=== PATIENT | female | born 1980 ===

== ENCOUNTER 2016-10-21 07:26 | Inpatient (IN) | payer BC ==
[~2016-10-21] VITALS: Ht 160 cm; Wt 78.2 kg
[2016-10-21] MEDS ORDERED: LACTATED RINGER'S 1000ML 500 ML IV PRN ×2 (08:41→20:02)
[2016-10-21] MEDS ORDERED: LACTATED RINGER'S 1000ML 1,000 ML IV PRN (08:41)
[2016-10-21] MEDS ORDERED: OXYTOCIN 30 UNITS/500ML NSS IV PRN (08:45)
[2016-10-21] MEDS ORDERED: PATIENT'S ALLERGY INFO NEEDS ENTERED SCH (09:00)
[2016-10-21] MEDS ORDERED: CALCIUM CARBONATE 500 MG CHEWABLE PO PRN (09:00)
--- NOTE | 2016-10-21 09:07 | HISTORY & PHYSICAL EXAMINATION ---
DATE OF ADMISSION: 10/21/2016 CHIEF COMPLAINT: Scheduled induction of labor for post-dates. HISTORY OF PRESENT ILLNESS: The patient is a 36-year-old G1, P0 at 40 weeks and 3 days of gestation who is presenting for scheduled induction of labor for postdates. She has no complaints, no contractions, leakage of fluid, or vaginal bleeding. She reports good movements. Her has been uncomplicated. She denies headaches, change in her vision, nausea, vomiting, epigastric pain, right upper quadrant pain or leg pain. She was measuring large on 10/17/2016 when she had ultrasound, baby was measuring 3924 grams, JUANCHO was 21. Discussed the ultrasound and the risks of shoulder dystocia, ACOG recommendations as for over 5000 grams. She would like to try vaginal and induction of labor today. PAST MEDICAL HISTORY: Unremarkable. She has a history of anxiety. She was on Lexapro years ago. She has not used anything for the last 4 years. She has been doing well. PAST SURGICAL HISTORY: [place] teeth extraction. MEDICATIONS: vitamins, iron sulfate, Tums. ALLERGIES: CODEINE CAUSED NAUSEA. GYNECOLOGIC HISTORY: The patient denies any history of STDs including Chlamydia, gonorrhea, herpes. OBSTETRICAL HISTORY: This is her first . LABS: Her blood type is A positive, antibody screen negative. H\T\H is 13/38, platelets 206. Rubella titer equivocal, RPR nonreactive, hepatitis B surface antigen negative, HIV negative, GC chlamydia cultures are negative and quad screening testing was negative. GBS culture was negative on 09/21/2016. One hour Glucola was 98 mg per deciliter. PHYSICAL EXAMINATION: GENERAL: The patient is alert, oriented x3. Not in acute distress. VITAL SIGNS: Stable. Afebrile. CARDIOVASCULAR SYSTEM: S1, S2, RRR. LUNGS: Clear to auscultation bilaterally. ABDOMEN: Soft, gravid. Ozzy 8-9 pounds. EXTREMITIES: Nontender, no edema. VAGINAL EXAMINATION: Cervix is 2 cm dilated, 60% effaced, -3 with tight bulging membranes. heart rate 140s, category 1. Tocometer contractions every 4-5 minutes. ASSESSMENT AND PLAN: The patient is a 36-year-old G1, P0 at 40 weeks and 3 days of gestation presenting for induction of labor for postdates. Vital signs stable, afebrile. Irregular and mild contractions. GBS negative. heart rate reassuring. No medical problems. Plan is admit her, start IV fluids, start IV Pitocin to augment her contractions and AROM when possible. Discussed risks of Pitocin. She understands and agrees with plan. MISHEL
[2016-10-21 09:36] LABS: HEMATOCRIT 38.2 % (37-47); MEAN CORPUSCULAR HEMOGLOBIN 28.8 pg (25-34); MEAN CORPUSCULAR HGB CONC 32.7 g/dl (32-36); MEAN PLATELET VOLUME 10.8 fL (7.4-10.4); PLATELET COUNT 160 K/uL (130-400); RED BLOOD COUNT 4.34 M/uL (4.2-5.4); WHITE BLOOD COUNT 11.16 K/uL (4.8-10.8)
[2016-10-21] MEDS: LACTATED RINGER'S 1000ML 1,000 ML IV SCH ×2 (09:39→16:16)
[2016-10-21 16:27] VITALS: Ht 160 cm; Wt 78.2 kg
[2016-10-21] MEDS ORDERED: IRON1CAP2 (18:05)
[2016-10-21] MEDS ORDERED: PRENCAP38 PO (18:05)
[2016-10-21] MEDS ORDERED: BUPIVACAINE 0.25% 30 ML VIAL ONE (18:53)
[2016-10-21] MEDS ORDERED: FENTANYL 2MCG/ML ROPIV 1.25MG/ML 100ML BAG EPI ONE (18:54)
[2016-10-21] MEDS ORDERED: EpHEDrine SULFATE INJ 50 MG/ML AMP ONE (18:54)
[2016-10-21] MEDS ORDERED: FENTANYL CITRATE INJ 50 MCG/1 ML 2 ML VIAL ONE (18:55)
[2016-10-21] MEDS ORDERED: NALOXONE HCL INJ 1 MG in SODIUM CHLORIDE 0.9% 1000ML 1,000 ML IV PRN (20:02)
[2016-10-21] MEDS ORDERED: EpHEDrine SULFATE INJ 50 MG/ML AMP IV PRN (20:15)
[2016-10-21] MEDS ORDERED: DiphenhydrAMINE HCL 50 MG/ML VIAL IV PRN (20:15)
[2016-10-21] MEDS ORDERED: NALBUPHINE HCL INJ 10 MG/ML AMP IV PRN (20:15)
[2016-10-21] MEDS ORDERED: NALOXONE HCL INJ 0.4 MG/1 ML VIAL/CARP IV PRN (20:15)
[2016-10-22] MEDS: FENTANYL 2MCG/ML ROPIV 1.25MG/ML 100ML BAG EPI PRN ×2 (02:51→11:57)
[2016-10-22] MEDS: LACTATED RINGER'S 1000ML 1,000 ML IV SCH ×3 (05:31→13:33)
[2016-10-22] MEDS ORDERED: BUPIVACAINE 0.25% 30 ML VIAL ONE (08:22)
[2016-10-22] MEDS ORDERED: LACTATED RINGER'S 1000ML 1,000 ML IV SCH (14:52)
[2016-10-22] MEDS ORDERED: ACETAMINOPHEN 325 MG TAB PO PRN (15:00)
[2016-10-22] MEDS ORDERED: OXYCODONE/ACETAMINOPHEN 5-325 TAB PO PRN (15:00)
[2016-10-22] MEDS ORDERED: LANOLIN OINT EXT PRN ×2 (15:00)
[2016-10-22] MEDS ORDERED: OXYTOCIN 30 UNITS/500ML NSS IV PRN (15:00)
[2016-10-22] MEDS ORDERED: BENZOCAINE 20% AER SPR 82.5 GM CAN EXT PRN (15:00)
[2016-10-22] MEDS ORDERED: IBUPROFEN 600 MG TAB PO PRN (15:00)
[2016-10-22] MEDS ORDERED: METHYLERGONOVINE MALEATE 0.2 MG/ML AMP IM ONE (15:00)
[2016-10-22] MEDS ORDERED: SUPERCREAM 0.870 % 15GM JAR EXT PRN (15:00)
[2016-10-22] MEDS ORDERED: MEASLES, MUMPS & RUBELLA VIRUS VIAL SQ. ONE (15:00)
--- NOTE | 2016-10-22 15:48 | OPERATIVE REPORT ---
DATE OF OPERATION: 10/22/2016 TIME OF DELIVERY OF BABY: 13:53 p.m. TIME OF DELIVERY OF PLACENTA: 14:31 p.m. DETAILS OF DELIVERY: The patient was found to be fully dilated and desired to push. She pushed for about 3 hours and the perineal muscles, hymenal ring and the skin were tight around the head. After verbal consent was obtained, a right mediolateral episiotomy was opened and baby's head was delivered without difficulty. There was a loose nuchal cord x1. The shoulders were delivered with minimal traction. The nuchal cord was reduced while delivering the body. Baby was handed over to the mother where mouth and nose were suctioned. Cord was clamped x2 and cut, 3-vessel cord. Then baby was taken by the nurses. The vagina and perineum were checked for lacerations. There was episiotomy only. Rectal exam was done and confirmed to be a second degree. Gloves were changed. The episiotomy was repaired while bringing the vaginal mucosa together. The perineal body muscles and bulbocavernosus muscles together and the skin in a subcuticular fashion. There was oozing around the episiotomy repair in the vagina as well as left to the episiotomy. Those were repaired with 2-0 Vicryl with single interrupted stitches and then we waited for placenta for 30 minutes. Placenta was found to be in the lower uterine segment / upper vagina. It was delivered by patient pushing and manual uterine massages. It was complete and intact. Then the uterus was explored and found to be empty. Lower segment was cleared of all clots and debris. Fundus was firm. EBL was 300. Vagina was checked again, there was again minimal oozing from the episiotomy repair as well as lower left vaginal wall. Those were repaired with 2-0 Vicryl with single [id number] stitches. There was still minimal oozing around the repair from the friable vaginal mucosa. Bernard powder was applied over this oozing on the mucosa and excellent hemostasis was achieved. Rectal exam was repeated and found to have good sphincter tone and no sutures were felt. Gloves were changed. Mother and baby tolerated the procedure well. Baby was a viable female infant. Apgars were 7/9. Weight was 3905 gr. No complications happened. I was present during whole procedure. At the end of the procedure, sponge, needle and instrument counts were correct x2. I attest to the content of the Intraoperative Record and any orders documented therein. Any exceptions are noted below. MISHEL
[2016-10-22] MEDS ORDERED: ONDANSETRON INJ 2 MG/ML 2 ML VIAL IV STA (16:29)
--- NOTE | 2016-10-22 16:29 | Anesthesia Procedure Note ---
Anesthesia Epidural Removal Nt Date & Time Oct 22, 2016 at 16:28 Vital Signs Pain Intensity: 0.0 Notes Mental Status: alert / awake / arousable, participated in evaluation Nausea / Vomiting: adequately controlled Pain: adequately controlled Airway Patency, RR, SpO2: stable & adequate BP & HR: stable & adequate Hydration State: stable & adequate Neuraxial Anesthesia: was administered Anesthetic Complications: no major complications apparent, pt satisfied with anesthetic care Epidural: removed without complications, with tip intact
[2016-10-22] MEDS ORDERED: NURSING VERBAL MED ORDER ONE (16:30)
[2016-10-22 18:15] VITALS: BP 116/76; PULSE 82; TEMP 36.7
[2016-10-22] MEDS: DOCUSATE SODIUM 100 MG CAP PO SCH (20:14)
[2016-10-22 23:25] VITALS: BP 94/60; PULSE 89; TEMP 37; O2SAT 98
[2016-10-23 03:45] VITALS: BP 96/62; PULSE 75; TEMP 36.4
[2016-10-23] MEDS: IBUPROFEN 200 MG/10 ML UDC PO PRN ×5 (03:56→20:26)
[2016-10-23 07:21] LABS: HEMATOCRIT 31.1 % (37-47)
--- NOTE | 2016-10-23 07:50 | OB/GYN Progress Note ---
CHIEF CLERK Progress Note Date of Service: Oct 23, 2016. Patient is seen and examined. She feels well, no complaints. Ambulating without dizziness Voiding without difficulty Tolerating regular diet with out N&V Bleeding is minimal No fever/ chills/ CP/ SOB/ N&V/ Leg pain Breast feeding without problems Date Time Temp Pulse Resp B/P Pulse Ox O2 Delivery O2 Flow Rate FiO2 10/23/16 03:45 36.4 75 16 96/62 10/22/16 23:25 37.0 89 16 94/60 98 Room Air 10/22/16 23:25 Room Air 10/22/16 18:15 Room Air 10/22/16 18:15 36.7 82 20 116/76 Room Air Test 10/21/16 09:10 10/23/16 06:51 White Blood Count 11.16 H Red Blood Count 4.34 Hemoglobin 12.5 10.5 L Hematocrit 38.2 31.1 L Mean Corpuscular Volume 88.0 Mean Corpuscular Hemoglobin 28.8 Mean Corpuscular Hemoglobin Concent 32.7 RDW Standard Deviation 46.1 RDW Coefficient of Variation 14.2 Platelet Count 160 Mean Platelet Volume 10.8 H PE: General: Alert, orientedx3, NAD Abd: soft, NT, fundus firm, below Umbilicus Perineum intact, Lochia rubra minimal Ext; NT, no edema AP: 36 yo s/p , ppd# 1 VSS Afebrile doing well Continue routine care All questions were answered D/C home tomorrow
[2016-10-23] MEDS ORDERED: MAGNESIUM HYDROXIDE SUSP 30 ML UDC PO ONE (08:00)
[2016-10-23] MEDS: PRENATAL VITAMIN TAB PO SCH (08:00)
[2016-10-23] MEDS: FERROUS SULFATE 325 MG TAB PO SCH (08:00)
[2016-10-23] MEDS: DOCUSATE SODIUM 100 MG CAP PO SCH ×2 (08:18→20:25)
[2016-10-23 08:30] VITALS: BP 104/69; PULSE 84; TEMP 36.4; O2SAT 98
[2016-10-23 11:25] VITALS: BP 102/63; PULSE 74; TEMP 36.5; O2SAT 98
[2016-10-23 15:30] VITALS: BP 111/62; PULSE 80; TEMP 36.4
[2016-10-23] MEDS ORDERED: BISACODYL 5 MG TABEC PO SCH (20:00)
[2016-10-24 00:01] VITALS: BP 103/64; PULSE 83; TEMP 36.7
[2016-10-24] MEDS: IBUPROFEN 200 MG/10 ML UDC PO PRN ×2 (00:33→08:36)
[2016-10-24] MEDS ORDERED: BISACODYL 10 MG SUPP PR PRN (07:00)
[2016-10-24 07:28] LABS: HEMATOCRIT 25.5 % (37-47); MEAN CELL VOLUME 89.8 fL (80-100); MEAN CORPUSCULAR HEMOGLOBIN 29.9 pg (25-34); MEAN CORPUSCULAR HGB CONC 33.3 g/dl (32-36); MEAN PLATELET VOLUME 10.5 fL (7.4-10.4); PLATELET COUNT 138 K/uL (130-400); RED BLOOD COUNT 2.84 M/uL (4.2-5.4); WHITE BLOOD COUNT 11.02 K/uL (4.8-10.8)
[2016-10-24 08:00] VITALS: BP 101/66; PULSE 74; TEMP 36.6
[2016-10-24] MEDS: DOCUSATE SODIUM 100 MG CAP PO SCH (08:38)
[2016-10-24] MEDS: PRENATAL VITAMIN TAB PO SCH (08:40)
[2016-10-24] MEDS: FERROUS SULFATE 325 MG TAB PO SCH (08:41)
--- NOTE | 2016-10-24 08:43 | OB/GYN Progress Note ---
DENTAL EQUIPMENT TECHNICIAN Progress Note Date of Service Oct 24, 2016. Subjective conversation w/ patient, physical exam Ambulation: ambulating normally Voiding: no voiding problems Passing Gas: Yes Diet Tolerance: Regular Diet Lochia: Moderate Feeding Type: Breast Feeding Review of Systems Constitutional: No chills, No fatigue, No fever, No problem reported, No sweats , No weakness, No weight loss Respiratory: No cough, No dyspnea at rest, No dyspnea on exertion, No hemoptysis, No problem reported, No shortness of breath, No sputum, No wheezing Cardiac: No PND, No chest pain, No claudication, No edema, No orthopnea, No palpitations, No problem reported Breast: No breast lump, No breast pain, No change in shape, No nipple discharge , No problem reported, No see HPI Abdomen: No GI bleeding, No constipation, No diarrhea, No nausea, No pain, No problem reported, No vomiting Female : No abnormal vaginal bleeding, No dysuria, No hematuria, No incontinence, No problem reported, No see HPI, No urinary frequency, No vaginal discharge Objective Vital Signs Date Time Temp Pulse Resp B/P Pulse Ox O2 Delivery O2 Flow Rate FiO2 10/24/16 08:00 36.6 74 18 101/66 Room Air 10/24/16 00:01 Room Air 10/24/16 00:01 36.7 83 18 103/64 Room Air 10/23/16 15:30 Room Air 10/23/16 15:30 36.4 80 20 111/62 Room Air 10/23/16 11:25 36.5 74 16 102/63 98 Room Air Physical Exam General Appearance: WELL-APPEARING, WD/WN, NO APPARENT DISTRESS Respiratory/Chest: chest non-tender, lungs clear, normal breath sounds, no respiratory distress, no accessory muscle use Cardiovascular: regular rate, rhythm, no edema, no gallop, no JVD, no murmur Abdomen: normal bowel sounds, non tender, soft, no organomegaly, no pulsatile mass Fundus: Firm Incision Description: Clean, Dry & Intact Extremities: normal range of motion, non-tender, normal inspection, no pedal edema, no calf tenderness Laboratory Results Last 24 Hours Test 10/24/16 06:45 White Blood Count 11.02 K/uL Red Blood Count 2.84 M/uL Hemoglobin 8.5 g/dL Hematocrit 25.5 % Mean Corpuscular Volume 89.8 fL Mean Corpuscular Hemoglobin 29.9 pg Mean Corpuscular Hemoglobin Concent 33.3 g/dl RDW Standard Deviation 49.2 fL RDW Coefficient of Variation 14.8 % Platelet Count 138 K/uL Mean Platelet Volume 10.5 fL Assessment and Plan Day Number: 2 Continue Routine Care: PPD #2 pt doing well d/c home with instructions
[2016-10-24] MEDS ORDERED: IBUP100S PO (08:45)
--- NOTE | 2016-10-24 08:46 | Discharge Instructions ---
Discharge Instructions Date of Service Oct 24, 2016. Admission Reason for Admission: Induction Discharge Discharge Diagnosis / Problem: Discharge Goals Goal(s): Routine recovery after delivery Activity Recommendations Activity Limitations: as noted below . Current Hospital Diet Patient's current hospital diet: Regular OB Diet Discharge Diet Recommended Diet: Regular Diet Pending Studies Studies pending at discharge: no Medical Emergencies . Who to Call and When: Medical Emergencies: If at any time you feel your situation is an emergency, please call 911 immediately. . Non-Emergent Contact Non-Emergency issues call your: Primary Care Provider . . "Provider Documentation" section prepared by Dominick Haynes. . VTE Core Measure Inpt VTE Proph given/why not?: Treatment not indicated
--- NOTE | 2016-10-24 09:07 | Discharge Instructions ---
Discharge Instructions Date of Service Oct 24, 2016. Admission Reason for Admission: Induction Discharge Discharge Diagnosis / Problem: Discharge Goals Goal(s): Continuing OB care Activity Recommendations Activity Limitations: as noted below ACTIVITY RECOMMENDATIONS: * Gradual return to full activity over the next 2-3 weeks. * No lifting - nothing heavier than baby over the next 2-3 weeks. * Do not engage in vigorous exercise, sexual activity or sports until cleared by your physician. * Do not drive or operate any motorized equipment until cleared by your physician. * You may shower/bathe daily. BREAST CARE: If you are not breast feeding: * Wear a supportive bra 24 hours a day for one to two weeks. * Avoid stimulating your breasts and nipples as much as possible during the first few weeks after delivery. * When taking a shower, have the warm water hit your back, not breasts. * When your breasts feel full, apply ice packs. Usually three to four times a day helps ease the discomfort. * Take a mild pain medication (Tylenol/Motrin) when you are uncomfortable. If breast feeding: * Use breast milk to lubricate nipples. Lansinoh cream may be used for sore nipples. You do not need to remove cream prior to breast feeding. If using a different brand of cream, check the label for directions regarding removal of cream prior to nursing. * Wear a supportive bra. * If having problems with breasts or breast feeding, call a real estate consultant or your health care provider. EPISIOTOMY CARE: After delivery, if you have an episiotomy (stitches), the following steps will ease discomfort and aid healing. * For the first 24 hours after delivery, place ice packs next to your episiotomy to help reduce swelling. * After the first 24 hour-period, sitz baths, either portable or in the tub, are suggested. A shower with a shower arm sprayed over the episiotomy may be comforting. * [place] care should be done after each voiding and bowel movement. Squirt warm water from a plastic bottle over the perineum (region of the body between the anus and urinary opening) and pat dry. * Use Dermoplast to ease discomfort. Shake container. [place] directly over the episiotomy. * Place a Tucks on a clean sanitary pad next to your episiotomy. OVER THE COUNTER MEDICATION: * For discomfort or pain, you may use Acetaminophen (Tylenol), Ibuprofen (Advil ), or Naproxen (Aleve) following the package directions. * For constipation you may use Colace following the package directions. SPECIAL CARE INSTRUCTIONS: When you are discharged from the hospital, it is important for you to follow the instructions listed below: * During the first week at home, you should be able to care for yourself and your baby. In addition, the usual light household activities are encouraged. * Limit your activities to the way you feel. Do not try to clean the house or move furniture. Be sensible. * If you actively engage in sports and have done so up until the time of your delivery, you may resume these activities as soon as you feel able. This may take up to one month or even longer. Use good judgment. * Continue to take your vitamins for at least six weeks after the of your baby. * Your diet need not be limited unless you were on a special diet before your delivery. Breast-feeding mothers need around 2500 calories per day and at least 64-80 ounces of fluid per day (8 to 10 glasses). * You should eat foods from the four major food groups. Crash diets or fad diets are to be avoided. Eating lean meats, fresh fruits and vegetables, low-fat dairy products, high fiber foods and a regular exercise program, will help you get back to your pre- weight without putting your health at risk. * Constipation is sometimes a problem after delivery. Take a mild laxative as needed. If breast feeding, Milk of Magnesia is acceptable to use. You may use a suppository or Fleets enema if no episiotomy. * A daily shower or tub bath is suggested. Be sure to thoroughly and gently dry the perineum. * A bloody vaginal discharge will usually continue until around four weeks post . A small amount of bleeding may continue for as long as six weeks. Vaginal discharge changes from the bright red bleeding after delivery to pink then brownish and finally yellowish-pink before becoming white and disappearing. * Bleeding may increase with activity. Your first period may come in 4-8 weeks. If you are breast feeding, your period may be delayed even longer. * [place] (sex) can begin whenever both you and your partner feel comfortable and do not have any form of genital infection. It is recommended that you wait until after your return appointment and discuss with your physician. If you have questions, please talk to your health care practitioner. A condom should be used to prevent infection and . * Foreplay, gentle intercourse and lubrication is very important the first several times to prevent pain. A water-based lubricant such as K-Y jelly or Astroglide may be used. * Tampons may be used six weeks after delivery. * Douching should be avoided for 6 weeks after delivery. * If you have RH negative blood and your baby is RH positive, you will receive RHOGAM by injection prior to discharge. The nurse will give you a card to keep with you that has the date and place that you received RHOGAM after delivery. * During your care, you had a Rubella screen done to check for the presence of rubella antibodies in your blood. If your test was negative, you will receive a Rubella vaccine prior to discharge. This vaccine may cause a fever, soreness at the injection site and flu-like symptoms. If these symptoms persist, notify your health care practitioner. is not advised for three months after a Rubella vaccine. There is a higher chance of having a baby with defects if conceived within three months of getting the vaccine. * If you were discharged 24 hours from delivery or before 48 hours: Visiting nurses will come to your home 48 hours after discharge to assess you and your baby. The visiting nurse will meet with you while you are in the hospital to arrange a time and get directions to your home. * Verbalizes understanding of car seat law as reviewed with patient nursing. * Car Seat hand-out given and reviewed with patient by nursing. * Shaken baby information reviewed with patient by nursing. Call you doctor if: * Heavy bleeding (saturating several pads an hour) or passing clots the size of your fist. * A fever >101 degrees F (38.3 degrees C) on two occasions four hours apart and/or chills. * Unusual pain in the pelvic or vaginal areas. * "Baby Blues" lasting longer than two weeks. If you have any questions or concerns, call your health care practitioner at . FOLLOW-UP VISIT: * Please call the office at to schedule a 6 week examination. It is important you keep this appointment. * It is important for you to make arrangements for either yearly or twice yearly check-ups thereafter. . Current Hospital Diet Patient's current hospital diet: Regular OB Diet Discharge Diet Recommended Diet: Regular Diet Pending Studies Studies pending at discharge: no Medical Emergencies . Who to Call and When: Medical Emergencies: If at any time you feel your situation is an emergency, please call 911 immediately. . Non-Emergent Contact Non-Emergency issues call your: Specialist . . "Provider Documentation" section prepared by Dominick Haynes. . VTE Core Measure Inpt VTE Proph given/why not?: Treatment not indicated
[2016-10-24 14:30] VITALS: BP_DIAS 66; PULSE 74; TEMP 36.6
== END 2016-10-24 14:30 | disposition home or self-care (01) | DRG 775 ==
LOC: C.LD 07:26 → C.OBG 10-22 18:44
PROVIDERS: ADMIT Obstetrics & Gynecology; ATTEND Obstetrics & Gynecology
PROC: 10E0XZZ Delivery of Products of Conception, External Approach (ICD-10-PCS; principal; 2016-10-22)
PROC: 0W8NXZZ Division of Female Perineum, External Approach (ICD-10-PCS; principal; 2016-10-22)
DX: O48.0 Post-term pregnancy (principal); Z37.0 Single live birth; Z3A.40 40 weeks gestation of pregnancy; O69.81X0 Labor and delivery complicated by cord around neck, without compression, not applicable or unspecified